=== PATIENT | male | born 1985 | race Caucasian/White ===

== ENCOUNTER 2017-03-23 17:08 | Emergency (ER) | payer OTHER ==
[2017-03-23] MEDS ORDERED: Lidocaine 2% Inj (20ml) INFIL ONE (18:48)
[2017-03-23] MEDS ORDERED: Bacitracin 500 Units/gm Oint Foilpak UD TOP ONE (18:49)
[2017-03-23] MEDS ORDERED: Lidocaine 2% Inj (20ml) ONE (19:01)
[2017-03-23] MEDS ORDERED: Bacitracin 500 Units/gm Oint Foilpak UD ONE (19:02)
--- NOTE | 2017-03-23 19:47 | C.PDOC ---
History Of Present Illness 32 year old male presents to the ED for evaluation of a laceration which he sustained to his right ankle earlier today. Patient states he was moving a chair when he accidentally cut his ankle. Patient denies extremity numbness/ weakness. Time Seen by Provider: 03/23/17 18:37 Chief Complaint (Nursing): Abnormal Skin Integrity History Per: Patient History/Exam Limitations: no limitations Onset/Duration Of Symptoms: Hrs Current Symptoms Are (Timing): Still Present Location Of Injury: Right: Ankle Quality Of Symptoms: Painful Additional History Per: Patient Past Medical History Reviewed: Historical Data, Nursing Documentation, Vital Signs Vital Signs: Last Vital Signs Temp 98.4 F 03/23/17 19:57 Pulse 82 03/23/17 19:57 Resp 20 03/23/17 19:57 BP 126/74 03/23/17 19:57 Pulse Ox 98 03/23/17 22:27 - Medical History PMH: No Chronic Diseases Surgical History: No Surg Hx Family History: States: Unknown Family Hx - Social History Hx Alcohol Use: No Hx Substance Use: No - Immunization History Hx Tetanus Toxoid Vaccination: No Hx Influenza Vaccination: No Hx Pneumococcal Vaccination: No Review Of Systems Skin: Positive for: Other (laceration to right ankle) Neurological: Negative for: Weakness, Numbness Physical Exam - Physical Exam Appears: Non-toxic, No Acute Distress Skin: Warm, Dry, Other (3cm laceration to right malleolus. no active bleeding ) Head: Atraumatic, Normacephalic Eye(s): bilateral: Normal Inspection, EOMI Nose: Normal Oral Mucosa: Moist Chest: Symmetrical Respiratory: No Accessory Muscle Use Extremity: Normal ROM, Capillary Refill (less than 2 seconds ), No Deformity, No Swelling Extremity: Bilateral: Normal Color And Temperature, Normal ROM Pulses: Left Dorsalis Pedis: Normal, Right Dorsalis Pedis: Normal Neurological/Psych: Normal Speech, Normal Cognition, Normal Motor, Normal Sensation Gait: Steady ED Course And Treatment O2 Sat by Pulse Oximetry: 98 (on RA) Pulse Ox Interpretation: Normal Progress Note: Right ankle XR ordered, results are unremarkable. Patient received Motrin PO and Tetanus immunization IM. 4 stitches applied, pt tolerated well. Bacitracin TOP applied to affected area. On reassessment, patient is resting comfortably, showing no signs of distress and is stable for discharge. Discussed wound care and advised to return to ED for suture removal in 10 days. Laceration - Laceration Repair right malleolus Wound Length (In cm): 3 Description Of Wound: Linear Wound Cleansed With: Betadine, Sterile Saline Anesthesia: Lidocaine 2% Wound Examination: Irrigated With Saline, No FB With Wound Exploration, No Tendon Injury With Wound Exploration Wound Closure: Suture (4) Suture Technique And Material Used: Nylon Wound Complexity: Simple Disposition - Disposition Disposition: HOME/ ROUTINE Disposition Time: 19:44 Condition: STABLE Additional Instructions: Keep area clean and dry. Watch for signs of infection including redness, swelling and discharge. Suture removal in 10 days. Instructions: Laceration (ED) Forms: [employer] (Albanian) - Clinical Impression Clinical Impression: Laceration - PA / PHARMACIST [facility]OS[facility]ITAL / Resident Statement MD/DO has reviewed & agrees with the documentation as recorded. - Scribe Statement The provider has reviewed the documentation as recorded by the Scribe (Leslee Oropeza) All medical record entries made by the Scribe were at my direction and personally dictated by me. I have reviewed the chart and agree that the record accurately reflects my personal performance of the history, physical exam, medical decision making, and the department course for this patient. I have also personally directed, reviewed, and agree with the discharge instructions and disposition.
[2017-03-23 19:57] VITALS: BP 126/74; PULSE 82; RESP 20; TEMP 98.4
[2017-03-23 22:20] VITALS: O2SAT 98
--- NOTE | 2017-03-24 08:47 | RAD ---
Right ankle three views History: Pain. Comparison: None available. Findings: Prominent lateral malleolar soft tissue swelling. Lucency through the distal fibula in a horizontal orientation is concerning for possible fracture. Clinical correlation. Ankle mortise is maintained. Talar dome is intact. Impression: Prominent lateral malleolar soft tissue swelling. Lucency through the distal fibula in a horizontal orientation is concerning for possible fracture. Clinical correlation. Correlation with MRI may be helpful if clinically indicated.
== END 2017-03-23 19:57 | disposition home or self-care (01) ==
LOC: C.ER 17:08
DX: S91.011A Laceration without foreign body, right ankle, initial encounter (principal); W45.8XXA Other foreign body or object entering through skin, initial encounter